=== PATIENT | female | born 1965 | race Caucasian/White ===

== ENCOUNTER 2016-07-11 12:05 | Emergency (ER) | payer OTHER ==
[~2016-07-11] VITALS: Ht 160 cm; Wt 85.0 kg
[2016-07-11 12:07] VITALS: BP 141/87; PULSE 78; RESP 24; TEMP 98.1; O2SAT 95
[2016-07-11] MEDS ORDERED: SODIUM CHLORIDE 0.9% FLUSH 5 ML FLUSH IVF PRN (12:30)
--- NOTE | 2016-07-11 12:43 | PD ---
HPI Chief Complaint: General Weakness Time Seen by Provider: 12:20 Travel History International Travel<30 days: No Contact w/Intl Traveler<30days: No Traveled to known affect area: No History of Present Illness HPI 51-year-old female with history of sarcoidosis and asthma, presents to the ER today with general weakness, feels aching all over her body, denies any fevers, chest pains, shortness of breath, or any other symptoms. Modifying Factors: None Associated Signs & Symptoms: Body aches, general weakness Risk Factors: None PFSH Past Medical History Asthma: Yes Respiratory: Yes (asthma) ?: Not Past Surgical History Hysterectomy: Yes Social History Alcohol Use: No Tobacco Use: No Substance Use: No Allergies-Medications (Allergen,Severity, Reaction): Coded Allergies: Dilaudid (Verified Allergy, Unknown, 07/11/16) Ibuprofen (Verified Allergy, Unknown, 07/11/16) Morphine (Verified Allergy, Unknown, 07/11/16) Reported Meds & Prescriptions Reported Meds & Active Scripts Active Reported Tramadol (Tramadol HCl) 50 Mg Tab 50-100 Mg PO Q8H PRN Losartan-Hydrochlorothiazide 100-25 Mg Tab 1 Tab PO DAILY Prozac (Fluoxetine HCl) 20 Mg Cap 20 Mg PO DAILY Pantoprazole (Pantoprazole Sodium) 40 Mg Tab 40 Mg PO DAILY Gabapentin 800 Mg Tab 800 Mg PO TID Review of Systems Except as stated in HPI: all other systems reviewed are Neg Physical Exam Narrative GENERAL: Well-nourished, well-developed middle age white female patient in no acute distress. SKIN: Warm and dry. HEAD: Normocephalic. EYES: No scleral icterus. No injection or drainage. NECK: Supple, trachea midline. CARDIOVASCULAR: Regular rate and rhythm without murmurs, gallops, or rubs. RESPIRATORY: Breath sounds equal bilaterally. No accessory muscle use. GASTROINTESTINAL: Abdomen soft, non-tender, nondistended. MUSCULOSKELETAL: No cyanosis, or edema. BACK: Nontender without obvious deformity. No CVA tenderness. Data Data Last Documented VS Vital Signs Date Time Temp Pulse Resp B/P Pulse Ox O2 Delivery O2 Flow Rate FiO2 07/11/16 13:31 70 18 126/70 98 Room Air 07/11/16 12:07 98.1 Orders Electrocardiogram (07/11/16 12:20) Complete Blood Count With Diff (07/11/16 12:20) Comprehensive Metabolic Panel (07/11/16 12:20) Magnesium (Mg) (07/11/16 12:20) Urinalysis - C+S If Indicated (07/11/16 12:20) Ecg Monitoring (07/11/16 12:20) Iv Access Insert/Monitor (07/11/16 12:20) Oximetry (07/11/16 12:20) Sodium Chloride 0.9% Flush (Ns Flush) (07/11/16 12:30) Influenzae A/B Antigen (07/11/16 12:20) Labs Laboratory Tests Test 07/11/16 07/11/16 12:38 13:25 White Blood Count 7.1 TH/MM3 Red Blood Count 4.56 MIL/MM3 Hemoglobin 13.7 GM/DL Hematocrit 39.4 % Mean Corpuscular Volume 86.4 FL Mean Corpuscular Hemoglobin 30.1 PG Mean Corpuscular Hemoglobin 34.9 % Concent Red Cell Distribution Width 13.0 % Platelet Count 277 TH/MM3 Mean Platelet Volume 7.1 FL Neutrophils (%) (Auto) 51.1 % Lymphocytes (%) (Auto) 36.6 % Monocytes (%) (Auto) 9.0 % Eosinophils (%) (Auto) 2.3 % Basophils (%) (Auto) 1.0 % Neutrophils # (Auto) 3.6 TH/MM3 Lymphocytes # (Auto) 2.6 TH/MM3 Monocytes # (Auto) 0.6 TH/MM3 Eosinophils # (Auto) 0.2 TH/MM3 Basophils # (Auto) 0.1 TH/MM3 CBC Comment DIFF FINAL Differential Comment Sodium Level 139 MEQ/L Potassium Level 3.8 MEQ/L Chloride Level 103 MEQ/L Carbon Dioxide Level 30.5 MEQ/L Anion Gap 6 MEQ/L Blood Urea Nitrogen 19 MG/DL Creatinine 0.93 MG/DL Estimat Glomerular Filtration 63 ML/MIN Rate Random Glucose 91 MG/DL Calcium Level 9.1 MG/DL Magnesium Level 2.2 MG/DL Total Bilirubin 0.4 MG/DL Aspartate Amino Transf 18 U/L (AST/SGOT) Alanine Aminotransferase 21 U/L (ALT/SGPT) Alkaline Phosphatase 64 U/L Total Protein 7.0 GM/DL Albumin 4.1 GM/DL Urine Color YELLOW Urine Turbidity HAZY Urine pH 7.5 Urine Specific [place] 1.020 Urine Protein NEG mg/dL Urine Glucose (UA) NEG mg/dL Urine Ketones NEG mg/dL Urine Occult Blood NEG Urine Nitrite NEG Urine Bilirubin NEG Urine Urobilinogen LESS THAN 2.0 MG/DL Urine Leukocyte Esterase NEG Urine RBC 5 /hpf Urine Squamous Epithelial 1 /hpf Cells Urine Amorphous Sediment MOD Urine Bacteria RARE /hpf Urine Mucus FEW /lpf Microscopic Urinalysis Comment CULT NOT INDICATED MDM Medical Decision Making Medical Screen Exam Complete: Yes Emergency Medical Condition: Yes Medical Record Reviewed: Yes Interpretation(s) EKG shows NSR, no ST elevation or depression, and no arrhythmias. No significant T-wave inversions. Laboratory Tests Test 07/11/16 07/11/16 12:38 13:25 Monocytes (%) (Auto) 9.0 % (0.0-8.0) Blood Urea Nitrogen 19 MG/DL (7-18) Estimat Glomerular Filtration 63 ML/MIN (>89) Rate Urine Turbidity HAZY (CLEAR) Urine RBC 5 /hpf (0-3) Urine Bacteria RARE /hpf (NONE) Urine Mucus FEW /lpf (OCC) Differential Diagnosis General weakness, body achinessviral syndrome versus influenza versus metabolic issues versus dehydration versus sepsis Narrative Course Lab work did not indicate any significant metabolic issues. She has no UTI. Vital signs are stable in the ER. Abdomen is benign and I do not suspect an acute intra-abdominal process. Influenza test is negative. Patient's states that she had ran out of her gabapentin a week ago and he is worried that this could be withdrawal side effects. At this point, he is asking for renewal gabapentin which I will do. However, I have suggested she follows up with primary care physician for further evaluation especially symptoms continue. Return for any worsening in symptoms as needed. The plan has been discussed with her and she states understanding. Diagnosis Primary Impression: Fatigue Med/Other Pt SpecificInfo: Prescription(s) given Scripts Gabapentin 800 Mg [id number] Mg PO TID #30 TAB Ref 0 Prov:Ni Cavanaugh MD 07/11/16 Disposition: 01 DISCHARGE HOME Condition: Stable Ni Cavanaugh MD Jul 11, 2016 12:43
[2016-07-11 12:52] LABS: AUTOMATED NEUTROPHIL # 3.6 TH/MM3 (1.8-7.7); BASOPHIL # 0.1 TH/MM3 (0-0.2); EOSINOPHIL # 0.2 TH/MM3 (0-0.4); EOSINOPHIL % 2.3 % (0.0-4.0); HEMATOCRIT 39.4 % (35.0-46.0); HEMO FLAGS DIFF FINAL; LYMPH % 36.6 % (9.0-44.0); LYMPHOCYTE # 2.6 TH/MM3 (1.0-4.8); MEAN CELL VOLUME 86.4 FL (80.0-100.0); MEAN CORPUSCULAR HEMOGLOBIN 30.1 PG (27.0-34.0); MEAN CORPUSCULAR HGB CONC 34.9 % (32.0-36.0); NEUT % 51.1 % (16.0-70.0); PLATELET COUNT 277 TH/MM3 (150-450); RED BLOOD COUNT 4.56 MIL/MM3 (4.00-5.30); WHITE BLOOD COUNT 7.1 TH/MM3 (4.0-11.0)
[2016-07-11 13:05] LABS: ALT (GPT) 21 U/L (10-53); ANION GAP 6 MEQ/L (5-15); AST (GOT) 18 U/L (15-37); BICARBONATE 30.5 MEQ/L (21.0-32.0); BLOOD UREA NITROGEN 19 MG/DL (7-18); CHLORIDE 103 MEQ/L (98-107); GLOMERULAR FILTRATION RATE 63 ML/MIN (>89); MAGNESIUM 2.2 MG/DL (1.5-2.5); POTASSIUM 3.8 MEQ/L (3.5-5.1); SODIUM (NA) 139 MEQ/L (136-145)
[2016-07-11 13:07] LABS: ALKALINE PHOSPHATASE 64 U/L (45-117); TOTAL BILIRUBIN ADULT 0.4 MG/DL (0.2-1.0)
[2016-07-11] MEDS ORDERED: PROZ20CA11 PO (13:09)
[2016-07-11] MEDS ORDERED: LOSA100T2 PO (13:09)
[2016-07-11] MEDS ORDERED: TRAM50TA PO (13:09)
[2016-07-11] MEDS ORDERED: PANT40TA3 PO (13:09)
[2016-07-11] MEDS ORDERED: GABA800T PO ×2 (13:09→14:08)
[2016-07-11 13:31] VITALS: BP 126/70; PULSE 70; RESP 18; O2SAT 98
[2016-07-11 13:54] LABS: BACTERIA, URINE RARE /hpf; BLOOD, URINE NEG (NEG); COMMENT (UR) CULT NOT INDICATED; CULTURE IF INDICATED CULT NOT INDICATED; GLUCOSE,URINE NEG (NEG); KETONE, URINE NEG (NEG); MUCUS URINE FEW /lpf (OCC); NITRITE,URINE NEG (NEG); PH, URINE 7.5 (5.0-8.5); SQUAMOUS EPITHELIAL CELL URINE 1 /hpf (0-5); URINE COLOR YELLOW (YELLW/STRAW)
[2016-07-11 14:00] VITALS: BP 138/81; PULSE 64; RESP 20; O2SAT 95
--- NOTE | 2016-07-11 18:00 | EKG ---
Date Performed: 07/11/2016 Time Performed: 12:29:40 PTAGE: 51 years EKG: Sinus rhythm NORMAL ECG NO PREVIOUS TRACING DOCTOR: Alexandro De Luna Interpretating Date/Time 07/11/2016 17:58:41
== END 2016-07-11 15:37 | disposition home or self-care (01) ==
LOC: NEPA 12:05
DX: R53.83 Other fatigue (principal); M79.1 Myalgia
CPT/HCPCS: 80053; 81001; 83735; 85025; 87804; 93005